=== PATIENT | female | born 1950 | race Two or more races ===

== ENCOUNTER → 2019-05-27 | Outpatient (CLI) | payer MEDICARE, BC ==
[~2019-05-27] MED LIST: METFORMIN HCL500 MG PO
--- NOTE | 2019-05-27 14:07 | Diagnostic Imaging Report ---
EXAM: Focused Soft Tissue Ultrasound Evaluation of left neck INDICATION: ^[id number] ^[id number] ^LT NECK PAIN/LUMP COMPARISON: None TECHNIQUE: Sanchez scale, color Doppler images of the left neck were obtained. FINDINGS: Sonographic evaluation of the left superior neck soft tissues in the area of swelling and pain demonstrates no focal mass or fluid collection. A physiologic lymph node in the area measures 9 x 6 x 8 mm and appears normal. IMPRESSION: Normal-appearing lymph node and no focal mass or fluid collection. Signed by: Benito Villafuerte MD on 05/27/2019 2:04 PM
== END ==
LOC: US 10:52
PROVIDERS: ATTEND Internal Medicine
DX: M54.2 Cervicalgia (principal); R22.1 Localized swelling, mass and lump, neck
CPT/HCPCS: 76536